=== PATIENT | male | born 1980 | race Two or more races ===

== ENCOUNTER 2024-03-01 10:49 | Day surgery (SDC) | payer OTHER ==
[2024-02-24 10:58] LABS: Basophils # (auto) 0 10 ^3/uL (0-0.2); Eosinophils # (auto) 0.1 10 ^3/uL (0-0.8); Mean Corpuscular Hemoglobin 34.2 pg (28.0-32.0); Mean Corpuscular Hgb Conc. 34.9 g/dL (32.0-36.0)
[2024-02-24 11:00] LABS: Basophils % (auto) 0.4 % (0.0-2.0); Eosinophils % (auto) 0.7 % (0.0-7.0); Hematocrit 50.3 % (41.0-53.0); Hemoglobin 17.5 g/dL (13.5-17.5); Lymphocytes % (auto) 37.5 % (10.0-50.0); Monocytes # (auto) 0.7 10 ^3/uL (0-1.3); Monocytes % (auto) 8.8 % (0.0-12.0); Neutrophils # (auto) 4.2 10 ^3/uL (1.6-8.6); Neutrophils % (auto) 52.6 % (37.0-80.0); Nucleated Red Blood Cells % 0.1 %; Platelet Count (auto) 183 10^3/uL (140-450); Red Blood Cells 5.13 10^6/uL (4.5-5.90); Red Cell Distribution Width 13.2 % (11.8-14.3); White Blood Cell 7.9 10^3/uL (4.4-10.8)
[2024-02-24 11:05] LABS: INR 1.03 (0.9-1.15); Partial Thromboplastin Time 25.3 SEC (24.5-34.5); Prothrombin Time 10.9 sec (9.3-11.8)
[2024-02-24 11:21] LABS: Alanine Aminotransferase 50 U/L (7-40); Albumin 4.5 g/dL (3.2-4.8); Alkaline Phosphatase 67 U/L (46-116); Anion Gap 7 (5-15); Aspartate Aminotransferase 33 U/L (13-40); Bilirubin, Total 0.8 mg/dL (0.2-1.0); Blood Urea Nitrogen 12 mg/dL (9-23); Calcium 9.9 mg/dL (8.7-10.4); Carbon Dioxide 26 mmol/L (20-31); Chloride 106 mmol/L (98-107); Glucose 88 mg/dL (74-106); Potassium 4.2 mmol/L (3.5-5.1); Sodium 139 mmol/L (136-145)
[2024-02-24 11:55] LABS: Total Protein 7.1 g/dL (5.7-8.2)
[~2024-03-01] VITALS: Ht 172.7 cm; Wt 81.6 kg
[~2024-03-01 10:49] MED LIST: PANT40TA2 PO; SUCR1SUS5 PO
[2024-03-01] MEDS ORDERED: MIDAZOLAM HCL 2MG/2ML 2ml VIAL (1mg/ml) ONE (10:56)
[2024-03-01] MEDS ORDERED: diphenhdrAMINE HCL 50 MG/1 ML VL ONE (10:56)
[2024-03-01] MEDS ORDERED: fentaNYL CITRATE 100 MCG/2 ML VL ONE (10:57)
[2024-03-01 13:05] VITALS: PULSE 58; RESP 18; O2SAT 100
--- NOTE | 2024-03-01 13:12 | DVHNC2 ---
Procedure - EFERRING PROVIDER: Dr. Bam TELLEZ PROCEDURE PERFORMED: 1. Esophagogastroduodenoscopy with biopsy with moderate sedation PRE-PROCEDURE DIAGNOSIS: 1. Dysphagia 2. Epigastric abdominal pain POSTPROCEDURE DIAGNOSIS: 1. Mild erosive esophagitis, LA grade A 2. Mild gastritis 3. Small hiatal hernia MEDICATIONS USED: 7mg IV Versed, 50 mcg of Fentanyl IV DETAILS OF THE PROCEDURE: Informed consent was obtained after risks benefits and alternatives were discussed at length with patient patient gave consent to the procedure as well as medication used for sedation. The patient was placed in left lateral decubitus position. An Olympus variable endoscope was inserted into the oropharynx advanced into the esophagus, then into the stomach, then into the duodenal bulb and duodenum. The scope was then withdrawn. The mucosa was carefully evaluated. The duodenum was normal to the 3rd portion. The stomach showed gastritis, biopsies were taken the body and antrum and sent for H pylori as well as pathology. Retroflexion showed no abnormalities. The scope was withdrawn. The esophagus showed mild erosive esophagitis with the Z-line at 37 cm. The patient had a small hiatal hernia. Midesophageal biopsies were taken to rule out eosinophilic esophagitis. The scope was then withdrawn and the procedure completed. The patient tolerated the procedure well. IMPRESSION: 1. Mild erosive esophagitis and mild gastritis. 2. Small hiatal hernia No findings on today's endoscopy that could explain the patient's dysphagia. Patient has gastritis may be a cause of the patient's symptoms of epigastric abdominal pain. RECOMMENDATIONS: 1. Follow up in GI Clinic for procedure and pathology results 2. Anti-reflux precautions 3. Patient should be on a proton pump inhibitor 30 minutes before breakfast daily 4. Consider further workup for the patient's symptoms that they persist or worsen 5. Consider biliary workup, musculoskeletal causes, lower GI causes or other for the patient's symptoms. 6. Avoid caffeine, spicy food, alcohol, chocolate, tomatoes, citrus, late night eating. I WOULD LIKE TO THANK DR. HERNADEZ FOR THIS REFERRAL ALEX ERAZO MD Mar 01, 2024 13:12
[2024-03-01] MEDS: MIDAZOLAM HCL 5 MG/ML-1ML VIAL ONE (13:13)
[2024-03-01] MEDS: fentaNYL CITRATE 100 MCG/2 ML VL ONE (13:13)
[2024-03-01] MEDS: MIDAZOLAM HCL 2MG/2ML 2ml VIAL (1mg/ml) ONE (13:19)
[2024-03-01 13:35] VITALS: PULSE 62; RESP 15; O2SAT 98
[2024-03-01 14:05] VITALS: BP 116/77; PULSE 67; RESP 16; O2SAT 98
== END 2024-03-01 14:15 | disposition home or self-care (01) ==
LOC: GI 10:49
PROVIDERS: ATTEND Specialist
DX: R13.10 Dysphagia, unspecified (principal); K29.50 Unspecified chronic gastritis without bleeding; K22.10 Ulcer of esophagus without bleeding; K21.00 Gastro-esophageal reflux disease with esophagitis, without bleeding; K22.89 Other specified disease of esophagus; K44.9 Diaphragmatic hernia without obstruction or gangrene; Z79.899 Other long term (current) drug therapy
CPT/HCPCS: 36415; 43239; 80053; 85025; 85610; 85730; 88305; 88312; 88342; J2250; J3010; 99152

== ENCOUNTER 2024-08-14 15:48 | Emergency (ER) | payer SELFPAY ==
[~2024-08-14] VITALS: Ht 170.2 cm; Wt 81.0 kg
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
[2024-08-14] MEDS: HYDROcodone-ACET 10/325MG TAB PO ONE (16:39)
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
[2024-08-14] MEDS ORDERED: HYDR-4902 PO (17:51)
[2024-08-14] MEDS ORDERED: IBUP-1455 PO (17:51)
[2024-08-14 18:12] VITALS: BP 142/70; PULSE 75; RESP 18; TEMP 98.7; O2SAT 98
== END 2024-08-14 18:18 | disposition home or self-care (01) ==
LOC: ER 15:48 → EDBD 15:48 → EDSEX 15:48 → ER 18:15
DX: S16.1XXA Strain of muscle, fascia and tendon at neck level, initial encounter (principal); S09.8XXA Other specified injuries of head, initial encounter; S50.11XA Contusion of right forearm, initial encounter; Z79.899 Other long term (current) drug therapy; V43.52XA Car driver injured in collision with other type car in traffic accident, initial encounter; Y93.89 Activity, other specified; Y92.410 Unspecified street and highway as the place of occurrence of the external cause; Y99.8 Other external cause status
CPT/HCPCS: 70450; 72125; 73130